=== PATIENT | male | born 1990 | race Caucasian/White ===

== ENCOUNTER 2016-09-13 23:25 | Emergency (ER) | payer BC, MEDICAID ==
[2016-09-14 00:29] LABS: % BASOPHILS 0.2 % (0.0-2.0); % EOSINOPHILS 4.3 % (0.0-5.0); % LYMPHOCYTES 24.2 % (20.0-50.0); % MONOCYTES 9.8 % (2.0-10.0); % NEUTROPHILS 61.5 % (40.0-80.0); MEAN CORPUSCULAR HEMOGLOBIN 30.1 pg (26.0-30.0); MEAN PLATELET VOLUME 8.4 fl; NEUTROPHILE ABSOLUTE 10.6 Th/cmm (1.8-8.0); PLATELET COUNT 298 Th/cmm (150-400); RED BLOOD COUNT 4.65 Mil/cmm (4.30-5.70); RED CELL DISTRIBUTION WIDTH 12.2 % (11.5-20.0)
[2016-09-14 00:32] LABS: WHITE BLOOD COUNT 17.2 Th/cmm (4.8-10.8)
[2016-09-14 00:47] LABS: BILIRUBIN,TOTAL 0.8 mg/dL (0.3-1.0)
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
[2016-09-14 04:19] LABS: ANION GAP 9.6 (7.0-16.0); BUN - UREA NITROGEN 41 mg/dL (7-25); BUN/CREATININE RATIO 37.3; CARBON DIOXIDE 27.2 mEq/L (21.0-31.0); CHLORIDE 102 mEq/L (98-107); CREATININE - SERUM 1.1 mg/dL (0.7-1.3); GLUCOSE 99 mg/dL (70-105); POTASSIUM SERUM 3.8 mEq/L (3.5-5.1); SODIUM SERUM 135 mEq/L (136-145)
[2016-09-14 04:20] LABS: ALB/GLOB RATIO 1.9 (1.0-1.8); ALKALINE PHOSPHATASE 62 U/L (34-104); BILIRUBIN,TOTAL 0.7 mg/dL (0.3-1.0); CALCIUM SERUM 9.4 mg/dL (8.6-10.3); LIPASE 20 U/L (11-82); SGOT 36 U/L (13-39); SGPT/ALT 19 U/L (7-52)
[2016-09-14 04:21] LABS: ACETAMINOPHEN < 10.0 ug/mL (10.0-30.0)
[2016-09-14 08:54] LABS: URINE BILIRUBIN NEGATIVE (NEGATIVE); URINE BLOOD NEGATIVE (NEGATIVE); URINE COLOR YELLOW; URINE GLUCOSE (UA) NEGATIVE (NEGATIVE); URINE KETONE 15 mg/dL (NEGATIVE); URINE PROTEIN NEGATIVE (NEGATIVE); URINE UROBILINOGEN 0.2 E.U./dL (0.2 - 1.0)
[2016-09-14 09:02] LABS: URINE BACTERIA NONE SEEN /hpf (NONE SEEN); URINE EPITHELIAL CELLS OCCASIONAL /lpf (FEW); URINE RBC NONE SEEN /hpf (0-5); URINE WBC NONE SEEN /hpf (0-5)
[2016-09-14 09:03] LABS: URINE CALCIUM OXALATE CRYSTALS FEW /hpf
[2016-09-14 09:05] LABS: AMPHETAMINE URINE POSITIVE (NEGATIVE); BARBITURATES URINE NEGATIVE (NEGATIVE); METHADONE URINE NEGATIVE (NEGATIVE)
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
--- NOTE | 2016-09-14 10:51 | Diagnostic Imaging Report ---
CT scan facial bones HISTORY: Pain, trauma Total DLP equals 306 CTDI equals 16.2 Axial sections were obtained through the facial bones. Additional sagittal and coronal reformatted images are provided. There is retention of normal bony margins about the orbits. No fractures. The zygomatic arches are intact. The pterygoid plates are intact. The nasal bones appear normal. There is extensive mucosal thickening throughout the ethmoid sinuses. Mild mucosal thickening noted about the right and to a slightly greater degree left maxillary sinus regions. The frontal and sphenoid sinuses appear normal. IMPRESSION: 1. No acute bony abnormalities 2. Mucosal thickening throughout the ethmoid sinuses. Mild mucosal thickening within the maxillary sinuses.
--- NOTE | 2016-09-14 10:52 | Diagnostic Imaging Report ---
Portable chest x-ray History: Cough, leukocytosis Allowing for portable technique the heart size is normal. No focal pulmonary parenchymal processes. No hilar or mediastinal abnormalities. Impression: No acute abnormalities.
== END 2016-09-14 12:15 ==
LOC: ER 23:25
DX: S00.83XA Contusion of other part of head, initial encounter (principal); F17.200 Nicotine dependence, unspecified, uncomplicated; X58.XXXA Exposure to other specified factors, initial encounter; Y93.89 Activity, other specified; Y92.89 Other specified places as the place of occurrence of the external cause; Y99.8 Other external cause status
CPT/HCPCS: 99285; 96372; 36415; 80307; 84443; 86592; 85025; 81001; 80329 ×2; 80320; 82247; 82977; 83690; 84075; 80053; 84450; 84460; 71010; 70450; 70486; 90715; J2060